=== PATIENT | female | born 1965 | race Two or more races ===

== ENCOUNTER 2017-07-13 14:56 | Outpatient (CLI) | payer OTHER ==
[~2017-07-13 14:56] MED LIST: AYR SALINE NA14.1 GM NASAL; CEFUROXIME500 MG PO; ZANTAC300 MG PO; ZYRTEC10 MG PO
== END 2017-07-13 15:21 | disposition home or self-care (01) ==
LOC: RAD 501 14:56
DX: M20.11 Hallux valgus (acquired), right foot (principal); M20.12 Hallux valgus (acquired), left foot

== ENCOUNTER 2018-03-01 08:18 | Outpatient (CLI) | payer OTHER ==
[~2018-03-01] VITALS: Ht 152.4 cm; Wt 61.2 kg
[2018-03-01] MEDS ORDERED: AYR SALINE NA14.1 GM NASAL (10:03)
[2018-03-01] MEDS ORDERED: ZYRTEC10 MG PO (10:03)
[2018-03-01] MEDS ORDERED: AFRIN15 ML NASAL (10:04)
== END 2018-03-01 08:35 | disposition home or self-care (01) ==
LOC: OFIC 805 08:18
DX: H92.21 Otorrhagia, right ear (principal); R04.0 Epistaxis; R06.83 Snoring; J32.8 Other chronic sinusitis

== ENCOUNTER 2018-03-08 08:19 | Outpatient (CLI) | payer OTHER ==
[~2018-03-08] VITALS: Ht 152.4 cm; Wt 61.2 kg
[~2018-03-08 08:19] MED LIST changes: +AFRIN15 ML NASAL
[2018-03-08] MEDS ORDERED: DERMOTIC20 ML OTIC (11:42)
[2018-03-08] MEDS ORDERED: AYR SALINE NA14.1 GM NASAL (11:42)
== END 2018-03-08 08:35 | disposition home or self-care (01) ==
LOC: OFIC 805 08:19
DX: H92.21 Otorrhagia, right ear (principal); R04.0 Epistaxis; R06.83 Snoring; J32.8 Other chronic sinusitis

== ENCOUNTER 2019-01-24 07:58 | Outpatient (CLI) | payer OTHER ==
[~2019-01-24] VITALS: Ht 152.4 cm; Wt 62.1 kg
[~2019-01-24 07:58] MED LIST changes: +DERMOTIC20 ML OTIC
[2019-01-24] MEDS ORDERED: ZYRTEC10 MG PO (10:53)
[2019-01-24] MEDS ORDERED: AYR SALINE NA14.1 GM NASAL (10:53)
[2019-01-24] MEDS ORDERED: PEPCID40 MG PO (10:54)
[2019-01-24] MEDS ORDERED: OMEPRAZOLE40 MG PO (10:54)
== END 2019-01-24 13:09 | disposition home or self-care (01) ==
LOC: OFIC 805 07:58
DX: J38.2 Nodules of vocal cords (principal); R49.8 Other voice and resonance disorders; J32.8 Other chronic sinusitis; R06.83 Snoring; R04.0 Epistaxis; H92.21 Otorrhagia, right ear; G47.39 Other sleep apnea

== ENCOUNTER 2020-05-21 14:58 | Outpatient (CLI) | payer OTHER ==
[~2020-05-21 14:58] MED LIST changes: +OMEPRAZOLE40 MG PO; +PEPCID40 MG PO
== END 2020-05-21 15:01 | disposition home or self-care (01) ==
LOC: NUCLEAR 14:58
PROVIDERS: ATTEND Obstetrics & Gynecology
DX: M81.0 Age-related osteoporosis without current pathological fracture (principal)

== ENCOUNTER 2023-09-27 06:58 | Day surgery (SDC) | payer OTHER ==
[~2023-09-27 06:58] MED LIST changes: +PROGESTERONA
[2023-09-27] MEDS ORDERED: CEFAZOLIN SODIUM 1,000 MG VIAL ONE ×2 (10:24→12:17)
[2023-09-27] MEDS ORDERED: LIDOCAINE HCL 1%/EPINEPHRINE 20ML VIAL IJ ONE (10:30)
[2023-09-27] MEDS ORDERED: FAMOTIDINE/PF 20 MG/10 ML SYRINGE IV SCH (12:15)
[2023-09-27] MEDS ORDERED: CEFAZOLIN SODIUM 1,000 MG VIAL IV SCH (12:15)
[2023-09-27] MEDS ORDERED: FAMOTIDINE/PF 20 MG/2 ML VIAL ONE (12:17)
== END 2023-09-27 14:40 | disposition home or self-care (01) ==
LOC: CIR.AMB 06:58
PROVIDERS: ATTEND Specialist
DX: K42.9 Umbilical hernia without obstruction or gangrene (principal); H52.209 Unspecified astigmatism, unspecified eye